=== PATIENT | male | born 1955 | race Caucasian/White ===

== ENCOUNTER 2017-09-09 20:56 | Emergency (ER) | payer OTHER ==
[2017-09-09] MEDS: LOPERAMIDE 2 MG CAP PO (23:03)
[2017-09-10 01:45] LABS: ETHANOL < 10.0 mg/dl
== END 2017-09-10 02:54 | disposition home or self-care (01) ==
LOC: E/R 09-10 02:54
DX: F10.920 Alcohol use, unspecified with intoxication, uncomplicated (principal); E11.9 Type 2 diabetes mellitus without complications; I10 Essential (primary) hypertension; E03.9 Hypothyroidism, unspecified; Z79.4 Long term (current) use of insulin
CPT/HCPCS: 80307; 82962; 99283

== ENCOUNTER 2017-09-17 11:38 | Emergency (ER) | payer OTHER ==
[2017-09-17 12:40] LABS: ADD MAN DIFF? NO
[2017-09-17 12:43] LABS: BASOPHIL # 0.1 10^3/ul (0.0-0.1); BASOPHILS % 0.4 % (0.0-2.0); EOSINOPHILS % 0.2 % (0.0-7.0); HEMATOCRIT 47.8 % (42.0-52.0); HEMOGLOBIN 15.5 g/dl (14.0-18.0); LYMPHOCYTES # 1.4 10^3/ul (0.8-2.9); LYMPHOCYTES % 8.3 % (15.0-51.0); MEAN CORPUSCULAR HEMOGLOBIN 33.6 pg (29.0-33.0); MEAN CORPUSCULAR HGB CONC 32.4 g/dl (32.0-37.0); MEAN CORPUSCULAR VOLUME 103.7 fl (82.0-101.0); MEAN PLATELET VOLUME 11.6 fl (7.4-10.4); MONOCYTE # 1.5 10^3/ul (0.3-0.9); MONOCYTES % 9.2 % (0.0-11.0); PLATELET COUNT 253 10^3/UL (140-415); RED BLOOD COUNT 4.61 10^6/ul (4.70-6.10); RED CELL DISTRIBUTION WIDTH 13.2 % (11.5-14.5)
[2017-09-17 12:43] LABS: WHITE BLOOD COUNT 16.2 10^3/ul (4.8-10.8)
[2017-09-17] MEDS: ONDANSETRON 4 MG INJ IV (12:43)
[2017-09-17 13:04] LABS: ALANINE AMINOTRANSFERASE 38 IU/L (13-69); ALBUMIN/GLOBULIN RATIO 1.72; ALKALINE PHOSPHATASE 131 IU/L (42-121); ANION GAP 38 (8-16); ASPARTATE AMINO TRANSFERASE 67 IU/L (15-46); BILIRUBIN,INDIRECT 0.7 mg/dl (0-1.1); BILIRUBIN,TOTAL 0.7 mg/dl (0.2-1.3); BLOOD UREA NITROGEN 20 mg/dl (7-20); CALCIUM 9.7 mg/dl (8.4-10.2); CHLORIDE 99 mmol/L (97-110); CREATININE 0.85 mg/dl (0.61-1.24); LIPASE 39 U/L (23-300); POTASSIUM 5.3 mmol/L (3.5-5.1); SODIUM 142 mmol/L (135-144); TOTAL PROTEIN 7.9 g/dl (6.1-8.1)
[2017-09-17 13:06] LABS: CARBON DIOXIDE 10 mmol/L (21-31)
[2017-09-17 13:07] LABS: ETHANOL < 10.0 mg/dl; GLUCOSE 618 mg/dl (70-220)
[2017-09-17 13:20] LABS: AMPHETAMINE/METHAMPHETAMINE Negative (NEGATIVE); BARBITURATES Negative (NEGATIVE); BENZODIAZEPINES Negative (NEGATIVE); CANNABINOIDS Positive (NEGATIVE); COCAINE Negative (NEGATIVE); OPIATES Negative (NEGATIVE)
[2017-09-17 13:26] LABS: MAGNESIUM 2.2 mg/dl (1.7-2.5)
[2017-09-17 13:27] LABS: URINE BLOOD (Dip) POC Negative (NEGATIVE); URINE KETONES (Dip) POC 4+ (NEGATIVE); URINE LEUKOCYTE EST (Dip) POC Negative (NEGATIVE); URINE NITRITE (Dip) POC Negative (NEGATIVE); URINE TOTAL PROTEIN POC Negative (NEGATIVE)
[2017-09-17] MEDS: ACCU-CHEK XX ×4 (13:30→15:00)
[2017-09-17] MEDS: SOD CHLORIDE 0.9% 1,860 ML IV (13:48)
[2017-09-17] MEDS: SOD CHLORIDE 0.9% 1,000 ML IV (13:53)
[2017-09-17] MEDS ORDERED: NITROGLYCERIN (SL) 0.4 MG TAB SL (14:00)
[2017-09-17] MEDS ORDERED: hydrALAzine 20 MG INJ IV (14:00)
[2017-09-17] MEDS ORDERED: DEXTROSE 50% 50 ML SYRINGE IV ×2 (14:00)
[2017-09-17] MEDS ORDERED: MAGNESIUM HYDROXIDE 30ML CUP PO (14:00)
[2017-09-17] MEDS ORDERED: morphine 2 MG INJ IV (14:00)
[2017-09-17] MEDS ORDERED: LORAZEPAM 2 MG INJ IV (14:00)
[2017-09-17] MEDS ORDERED: INSULIN HUMAN REGULAR 100 UNIT in SOD CHLORIDE 0.9% 99 ML IV (14:00)
[2017-09-17] MEDS ORDERED: ALBUTEROL/IPRATROPIUM (NEB) 3 ML AMP HHN (14:00)
[2017-09-17] MEDS ORDERED: HYDROCODONE/APAP (5/325) TAB PO (14:00)
[2017-09-17] MEDS ORDERED: NA PHOSPHATE/BIPHOS 133 ML ENEMA PR (14:00)
[2017-09-17] MEDS ORDERED: DOCUSATE SODIUM 100 MG CAP PO (14:00)
[2017-09-17] MEDS ORDERED: ACETAMINOPHEN 325 MG TAB PO (14:00)
[2017-09-17] MEDS ORDERED: NACL 0.9% 3 ML SYG IV (14:00)
[2017-09-17] MEDS ORDERED: ONDANSETRON 4 MG INJ IV (14:00)
[2017-09-17] MEDS: INSULIN HUMAN REGULAR 100 UNIT in SOD CHLORIDE 0.9% 99 ML IV (14:42)
[2017-09-17] MEDS: LACTATED RINGER'S 1,000 ML IV (15:01)
[2017-09-17 15:02] LABS: LACTIC ACID 3.1 mmol/L (0.5-2.0)
[2017-09-17] MEDS: PIPER-TAZO 3.375 GM IV (PMX) 100 ML IVPB (15:15)
[2017-09-17 15:19] LABS: FREE T4 (FREE THYROXINE) 1.28 ng/dl (0.78-2.44)
[2017-09-17 15:20] LABS: GLUCOSE, FASTING 605 mg/dl (70-110)
[2017-09-17 15:36] LABS: ANION GAP 39 (8-16); BLOOD UREA NITROGEN 21 mg/dl (7-20); CALCIUM 9.5 mg/dl (8.4-10.2); CHLORIDE 100 mmol/L (97-110); CREATININE 0.87 mg/dl (0.61-1.24); SODIUM 142 mmol/L (135-144)
[2017-09-17 15:46] LABS: CARBON DIOXIDE 9 mmol/L (21-31)
[2017-09-17 15:47] LABS: GLUCOSE 613 mg/dl (70-220)
[2017-09-17 15:48] LABS: POTASSIUM 6.3 mmol/L (3.5-5.1)
[2017-09-17 15:50] LABS: HEMOGLOBIN A1C 6.8 % (0-5.9)
[2017-09-17] MEDS ORDERED: POTASSIUM CHLORIDE 10 MEQ in SOD CHLORIDE 0.9% 1,000 ML IV (15:53)
[2017-09-17] MEDS ORDERED: SOD CHLORIDE 0.9% 1,000 ML IV (16:00)
[2017-09-17] MEDS ORDERED: HEPARIN 5,000 UNIT/0.5 ML VIAL SC (21:00)
[2017-09-18] MEDS ORDERED: PANTOPRAZOLE 40 MG INJ IV (06:00)
[2017-09-18] MEDS ORDERED: LEVOTHYROXINE 75 MCG TAB PO (07:00)
[2017-09-18 07:41] LABS: AADO2 Arterial 21.1 mmHg (7.0-24.0); Allen Test ACCEPTAB; Arterial Base Excess -18.3 mmol/L (-3.0-3); Arterial Blood Gas Oxygen Sat 96.4 mmHG (95.0-98.0); Arterial COHb 0.5 % (0.0-3.0); Arterial Fraction of Oxyhgb 95.5 % (93.0-99.0); Arterial MetHb 0.4 % (0.0-1.5); Arterial Total Hemglobin 15.9 g/dl (12.0-18.0); MODE ROOM AIR; Site Right Brachial
[2017-09-18] MEDS ORDERED: AMLODIPINE 10 MG TAB PO (09:00)
[2017-09-18 13:41] LABS: CREATININE, RANDOM URINE 19 mg/dL (20-370); MICROALBUMIN 0.5 mg/dL; MICROALBUMIN/CREATININE RATIO 26 (<30)
== END 2017-09-17 16:59 | disposition left against medical advice (07) ==
LOC: E/R 11:38
DX: E11.11 Type 2 diabetes mellitus with ketoacidosis with coma (principal); E87.5 Hyperkalemia; D72.829 Elevated white blood cell count, unspecified; F12.10 Cannabis abuse, uncomplicated; R94.5 Abnormal results of liver function studies; I10 Essential (primary) hypertension; E03.9 Hypothyroidism, unspecified; Z79.4 Long term (current) use of insulin
CPT/HCPCS: 36415; 36600; 71045; 80048; 80053; 80307; 81003; 82043; 82803; 82947; 82962; 83036; 83605; 83690; 83735; 84100; 84439; 85025; 87040; 96374; 96375; 99291-25

== ENCOUNTER 2017-09-18 23:31 | Inpatient (IN) | payer OTHER ==
[2017-09-19] MEDS: SOD CHLORIDE 0.9% 500 ML IV (02:39)
[2017-09-19 02:46] LABS: ADD MAN DIFF? NO
[2017-09-19 02:49] LABS: BASOPHILS % 0.2 % (0.0-2.0); EOSINOPHILS % 0.1 % (0.0-7.0); HEMATOCRIT 44.2 % (42.0-52.0); HEMOGLOBIN 14.8 g/dl (14.0-18.0); LYMPHOCYTES # 1.8 10^3/ul (0.8-2.9); LYMPHOCYTES % 18.6 % (15.0-51.0); MEAN CORPUSCULAR HEMOGLOBIN 33.5 pg (29.0-33.0); MEAN CORPUSCULAR HGB CONC 33.5 g/dl (32.0-37.0); MONOCYTE # 0.7 10^3/ul (0.3-0.9); MONOCYTES % 6.6 % (0.0-11.0); NEUTROPHIL # 7.3 10^3/ul (1.6-7.5); PLATELET COUNT 242 10^3/UL (140-415); RED BLOOD COUNT 4.42 10^6/ul (4.70-6.10); RED CELL DISTRIBUTION WIDTH 13.2 % (11.5-14.5)
[2017-09-19 02:49] LABS: WHITE BLOOD COUNT 9.9 10^3/ul (4.8-10.8)
[2017-09-19 02:54] LABS: ADD UMIC NO; UR ASCORBIC ACID NEGATIVE (NEGATIVE); UR BILIRUBIN (Dip) NEGATIVE (NEGATIVE); UR BLOOD (Dip) NEGATIVE (NEGATIVE); UR CLARITY CLEAR (CLEAR); UR COLOR STRAW (YELLOW); UR GLUCOSE (Dip) 3+ mg/dL (NEGATIVE); UR KETONES (Dip) 2+ mg/dL (NEGATIVE); UR LEUKOCYTE ESTERASE (Dip) NEGATIVE Leu/ul (NEGATIVE); UR NITRITE (Dip) NEGATIVE (NEGATIVE); UR SPECIFIC GRAVITY (Dip) 1.028 (1.003-1.030); UR TOTAL PROTEIN (Dip) NEGATIVE (NEGATIVE); UR UROBILINOGEN (Dip) NEGATIVE (NEGATIVE)
[2017-09-19 03:09] LABS: LACTIC ACID 1.4 mmol/L (0.5-2.0)
[2017-09-19 03:12] LABS: ALANINE AMINOTRANSFERASE 32 IU/L (13-69); ALBUMIN 4.3 g/dl (3.3-4.9); ALBUMIN/GLOBULIN RATIO 1.43; ALKALINE PHOSPHATASE 97 IU/L (42-121); ANION GAP 25 (8-16); ASPARTATE AMINO TRANSFERASE 38 IU/L (15-46); BILIRUBIN,INDIRECT 0.9 mg/dl (0-1.1); BILIRUBIN,TOTAL 0.9 mg/dl (0.2-1.3); BLOOD UREA NITROGEN 23 mg/dl (7-20); CALCIUM 9.5 mg/dl (8.4-10.2); CARBON DIOXIDE 19 mmol/L (21-31); CHLORIDE 97 mmol/L (97-110); CREATININE 0.87 mg/dl (0.61-1.24); POTASSIUM 4.3 mmol/L (3.5-5.1); SODIUM 137 mmol/L (135-144); TOTAL PROTEIN 7.3 g/dl (6.1-8.1)
[2017-09-19 03:23] LABS: GLUCOSE 572 mg/dl (70-220)
[2017-09-19] MEDS: INSULIN HUMAN REGULAR 100 UNIT in SOD CHLORIDE 0.9% 99 ML IV (03:51)
[2017-09-19] MEDS: SOD CHLORIDE 0.9% 1,000 ML IV ×4 (05:34→18:54)
[2017-09-19] MEDS ORDERED: ALBUTEROL/IPRATROPIUM (NEB) 3 ML AMP NEB (06:00)
[2017-09-19] MEDS ORDERED: ACETAMINOPHEN 650MG/20.3ML CUP PO (06:00)
[2017-09-19] MEDS: ACCU-CHEK XX ×8 (06:00→20:39)
[2017-09-19] MEDS ORDERED: ONDANSETRON 4 MG INJ IV (06:00)
[2017-09-19] MEDS ORDERED: INSULIN HUMAN REGULAR 100 UNIT in SOD CHLORIDE 0.9% 99 ML IV (06:00)
[2017-09-19] MEDS ORDERED: morphine 2 MG INJ IV (06:00)
[2017-09-19] MEDS ORDERED: DEXTROSE 50% 50 ML SYRINGE IV ×4 (06:00→19:00)
[2017-09-19 06:14] LABS: AADO2 Arterial 31.4 mmHg (7.0-24.0); Allen Test ACCEPTAB; Arterial Base Excess -1.3 mmol/L (-3.0-3); Arterial Blood Gas Oxygen Sat 96.2 mmHG (95.0-98.0); Arterial COHb 0.7 % (0.0-3.0); Arterial Fraction of Oxyhgb 95.3 % (93.0-99.0); Arterial HCO3 22.1 mmol/L (22.0-26.0); Arterial MetHb 0.2 % (0.0-1.5); Arterial pCO2 33.9 mmhg (35-45); MODE ROOM AIR; Site Right Radial
[2017-09-19 06:34] LABS: LACTIC ACID 1.4 mmol/L (0.5-2.0)
[2017-09-19 07:33] LABS: PHOSPHORUS 1.7 mg/dl (2.5-4.9)
[2017-09-19] MEDS: DEXTROSE 5%-0.9% NACL 1,000 ML IV (08:04)
[2017-09-19 08:13] LABS: LACTIC ACID 1.7 mmol/L (0.5-2.0)
[2017-09-19 08:17] LABS: ANION GAP 13 (8-16); BLOOD UREA NITROGEN 19 mg/dl (7-20); CALCIUM 9.4 mg/dl (8.4-10.2); CARBON DIOXIDE 25 mmol/L (21-31); CHLORIDE 105 mmol/L (97-110); CREATININE 0.63 mg/dl (0.61-1.24); GLUCOSE 216 mg/dl (70-220); MAGNESIUM 2.2 mg/dl (1.7-2.5); SODIUM 140 mmol/L (135-144)
[2017-09-19] MEDS: LACTATED RINGER'S 1,000 ML IV (08:38)
[2017-09-19] MEDS: POTASSIUM CHLORIDE 20 MEQ in SOD CHLORIDE 0.9% 1,000 ML IV (08:45)
[2017-09-19] MEDS: PROVENTIL HFA 6.7GM INHALER INH ×2 (10:00→13:21)
[2017-09-19] MEDS: INSULIN GLARGINE [LANtus] 3 ML PEN SC (10:07)
[2017-09-19] MEDS: INSULIN ASPART [NOVOLOG] 3 ML PEN SC ×7 (12:15→20:48)
[2017-09-19] MEDS: BENAZEPRIL 40 MG TAB PO (12:58)
[2017-09-19] MEDS: AMLODIPINE 10 MG TAB PO (12:58)
[2017-09-19] MEDS: ASPIRIN (EC) 81 MG TAB PO (13:02)
[2017-09-19] MEDS ORDERED: GLUCOSE GEL 15 GRAM TUBE BUCCAL (19:00)
[2017-09-19] MEDS ORDERED: GLUCAGON 1 MG INJ IM (19:00)
[2017-09-19] MEDS ORDERED: GLUCOSE GEL 15 GRAM TUBE PO ×2 (19:00)
[2017-09-19 20:06] LABS: HEPATITIS B SURFACE ANTIGEN NEGATIVE (NEGATIVE)
[2017-09-19 20:23] LABS: HEPATITIS C VIRAL ANTIBODY NEGATIVE (NEGATIVE)
[2017-09-19 20:23] LABS: HEPATITIS B SURFACE ANTIBODY NEGATIVE (NEGATIVE)
[2017-09-19] MEDS: LOPERAMIDE 2 MG CAP PO (20:38)
[2017-09-19] MEDS: POTASSIUM CHLORIDE (SR) 20 MEQ TAB PO (20:38)
[2017-09-19] MEDS: POTASSIUM CHLORIDE 100 ML IVPB ×2 (20:39→22:51)
[2017-09-19] MEDS: ALBUTEROL HFA 8 GM INHALER INH (20:41)
[2017-09-19] MEDS ORDERED: BENAZEPRIL 40 MG TAB PO (21:00)
[2017-09-20] MEDS: ALBUTEROL HFA 8 GM INHALER INH ×4 (00:51→13:00)
[2017-09-20] MEDS: ACCU-CHEK XX ×2 (02:01→10:05)
[2017-09-20] MEDS: SOD CHLORIDE 0.9% 1,000 ML IV ×2 (02:01→09:18)
[2017-09-20 05:46] LABS: ADD MAN DIFF? NO
[2017-09-20 05:52] LABS: BASOPHILS % 0.6 % (0.0-2.0); EOSINOPHILS # 0.1 10^3/ul (0.0-0.5); EOSINOPHILS % 0.8 % (0.0-7.0); HEMATOCRIT 40.2 % (42.0-52.0); HEMOGLOBIN 13.8 g/dl (14.0-18.0); LYMPHOCYTES # 2.9 10^3/ul (0.8-2.9); LYMPHOCYTES % 40.3 % (15.0-51.0); MEAN CORPUSCULAR HGB CONC 34.3 g/dl (32.0-37.0); MEAN PLATELET VOLUME 10.5 fl (7.4-10.4); MONOCYTE # 0.7 10^3/ul (0.3-0.9); MONOCYTES % 9.4 % (0.0-11.0); NEUTROPHIL # 3.5 10^3/ul (1.6-7.5); NEUTROPHILS % 48.6 % (39.0-77.0); PLATELET COUNT 197 10^3/UL (140-415); RED BLOOD COUNT 4.06 10^6/ul (4.70-6.10); RED CELL DISTRIBUTION WIDTH 12.7 % (11.5-14.5)
[2017-09-20 05:52] LABS: WHITE BLOOD COUNT 7.1 10^3/ul (4.8-10.8)
[2017-09-20 05:58] LABS: CHOL/HDL RATIO 1.9 RATIO; HDL CHOLESTEROL 67 mg/dl (30-78); LDL CHOLESTEROL,CALCULATED 48 mg/dl; TRIGLYCERIDES 69 mg/dl (0-149)
[2017-09-20 05:58] LABS: CHOLESTEROL 129 mg/dl (100-200)
[2017-09-20 06:01] LABS: ANION GAP 11 (8-16); BLOOD UREA NITROGEN 9 mg/dl (7-20); CALCIUM 8.6 mg/dl (8.4-10.2); CARBON DIOXIDE 25 mmol/L (21-31); CHLORIDE 107 mmol/L (97-110); CREATININE 0.56 mg/dl (0.61-1.24); GLUCOSE 214 mg/dl (70-220); MAGNESIUM 1.9 mg/dl (1.7-2.5); SODIUM 139 mmol/L (135-144)
[2017-09-20 06:04] LABS: PHOSPHORUS 2.4 mg/dl (2.5-4.9)
[2017-09-20] MEDS: LEVOTHYROXINE 75 MCG TAB PO (08:14)
[2017-09-20] MEDS: AMLODIPINE 5 MG TAB PO (08:15)
[2017-09-20] MEDS: BENAZEPRIL 40 MG TAB PO (08:15)
[2017-09-20] MEDS: ASPIRIN (EC) 81 MG TAB PO (08:15)
[2017-09-20] MEDS: INSULIN GLARGINE [LANtus] 3 ML PEN SC (08:20)
[2017-09-20] MEDS: INSULIN ASPART [NOVOLOG] 3 ML PEN SC ×4 (08:21→12:04)
[2017-09-20] MEDS: LOPERAMIDE 2 MG CAP PO (09:21)
[2017-09-20] MEDS: POTASSIUM CHLORIDE (SR) 20 MEQ TAB PO (13:56)
== END 2017-09-20 14:05 | disposition home or self-care (01) | DRG 638 ==
LOC: E/R 23:31 → MS2 09-19 09:48
PROVIDERS: Internal Medicine
DX: E10.10 Type 1 diabetes mellitus with ketoacidosis without coma (principal); T85.694A Other mechanical complication of insulin pump, initial encounter; I10 Essential (primary) hypertension; E03.9 Hypothyroidism, unspecified; Z96.41 Presence of insulin pump (external) (internal); Z79.4 Long term (current) use of insulin
CPT/HCPCS: 36415; 36600; 71045; 80048; 80053; 80061; 81003; 82803; 82962; 83605; 83735; 84100; 84443; 85025; 86706; 86803; 87086; 87340; 96372; 96374; 96375; 99291-25

== ENCOUNTER 2017-11-11 09:20 | Inpatient (IN) | payer OTHER ==
[2017-11-11] MEDS ORDERED: INSULIN REGULAR 10 ML INJ IV (09:32)
[2017-11-11] MEDS: SOD CHLORIDE 0.9% 1,000 ML IV (09:39)
[2017-11-11 09:48] LABS: ADD MAN DIFF? NO
[2017-11-11] MEDS: INSULIN REGULAR, HUMAN 100 UNIT/1 ML 3ML VIAL IV (09:49)
[2017-11-11 09:51] LABS: ABNORMAL IP MESSAGE 1; BASOPHILS % 0.2 % (0.0-2.0); EOSINOPHILS % 0.1 % (0.0-7.0); HEMATOCRIT 43.2 % (42.0-52.0); HEMOGLOBIN 14.5 g/dl (14.0-18.0); LYMPHOCYTES # 0.8 10^3/ul (0.8-2.9); LYMPHOCYTES % 4.8 % (15.0-51.0); MEAN CORPUSCULAR HEMOGLOBIN 34.3 pg (29.0-33.0); MEAN CORPUSCULAR HGB CONC 33.6 g/dl (32.0-37.0); MEAN CORPUSCULAR VOLUME 102.1 fl (82.0-101.0); MEAN PLATELET VOLUME 11.3 fl (7.4-10.4); MONOCYTE # 1.6 10^3/ul (0.3-0.9); MONOCYTES % 9.2 % (0.0-11.0); NEUTROPHIL # 14.9 10^3/ul (1.6-7.5); NEUTROPHILS % 84.7 % (39.0-77.0); PLATELET COUNT 271 10^3/UL (140-415); POSITIVE DIFF @See below; RED BLOOD COUNT 4.23 10^6/ul (4.70-6.10); RED CELL DISTRIBUTION WIDTH 12.5 % (11.5-14.5)
[2017-11-11 09:51] LABS: WHITE BLOOD COUNT 17.5 10^3/ul (4.8-10.8)
[2017-11-11 09:52] LABS: ADD UMIC NO; UR ASCORBIC ACID NEGATIVE (NEGATIVE); UR BILIRUBIN (Dip) NEGATIVE (NEGATIVE); UR BLOOD (Dip) NEGATIVE (NEGATIVE); UR CLARITY CLEAR (CLEAR); UR COLOR STRAW (YELLOW); UR GLUCOSE (Dip) 3+ mg/dL (NEGATIVE); UR KETONES (Dip) 2+ mg/dL (NEGATIVE); UR LEUKOCYTE ESTERASE (Dip) NEGATIVE Leu/ul (NEGATIVE); UR NITRITE (Dip) NEGATIVE (NEGATIVE); UR SPECIFIC GRAVITY (Dip) 1.017 (1.003-1.030); UR TOTAL PROTEIN (Dip) NEGATIVE (NEGATIVE); UR UROBILINOGEN (Dip) NEGATIVE (NEGATIVE)
[2017-11-11 10:11] LABS: ALANINE AMINOTRANSFERASE 34 IU/L (13-69); ALBUMIN 4.1 g/dl (3.3-4.9); ALBUMIN/GLOBULIN RATIO 1.57; ALKALINE PHOSPHATASE 122 IU/L (42-121); AMYLASE 46 U/L (11-123); ANION GAP 31 (8-16); ASPARTATE AMINO TRANSFERASE 55 IU/L (15-46); BLOOD UREA NITROGEN 16 mg/dl (7-20); CALCIUM 9.7 mg/dl (8.4-10.2); CARBON DIOXIDE 13 mmol/L (21-31); CHLORIDE 99 mmol/L (97-110); CREATININE 0.74 mg/dl (0.61-1.24); LIPASE 33 U/L (23-300); MAGNESIUM 1.7 mg/dl (1.7-2.5); PHOSPHORUS 5.3 mg/dl (2.5-4.9); POTASSIUM 4.8 mmol/L (3.5-5.1); SODIUM 138 mmol/L (135-144); TOTAL PROTEIN 6.7 g/dl (6.1-8.1)
[2017-11-11 10:14] LABS: ETHANOL < 10.0 mg/dl; GLUCOSE 450 mg/dl (70-220)
[2017-11-11 10:15] LABS: LACTIC ACID 4.5 mmol/L (0.5-2.0)
[2017-11-11 10:16] LABS: AMPHETAMINE/METHAMPHETAMINE Negative (NEGATIVE); BARBITURATES Negative (NEGATIVE); BENZODIAZEPINES Negative (NEGATIVE); CANNABINOIDS Positive (NEGATIVE); COCAINE Negative (NEGATIVE); OPIATES Negative (NEGATIVE)
[2017-11-11 10:18] LABS: INR 0.94; PROTIME 12.7 Sec (11.9-14.9)
[2017-11-11 10:26] LABS: AADO2 Arterial 32.8 mmHg (7.0-24.0); Allen Test ACCEPTAB; Arterial Base Excess -12.3 mmol/L (-3.0-3); Arterial Blood Gas Oxygen Sat 95.6 mmHG (95.0-98.0); Arterial Fraction of Oxyhgb 94.4 % (93.0-99.0); Arterial HCO3 12.2 mmol/L (22.0-26.0); Arterial MetHb 0.3 % (0.0-1.5); Arterial Total Hemglobin 14.7 g/dl (12.0-18.0); Arterial pCO2 25.3 mmhg (35-45); MODE ROOM AIR; Site Right Radial
[2017-11-11] MEDS ORDERED: SODIUM CHLORIDE 23.4% 77 MEQ, POTASSIUM CHLORIDE 40 MEQ in DEXTROSE 10% 1,000 ML IV (10:38)
[2017-11-11] MEDS ORDERED: SODIUM CHLORIDE 23.4% 77 MEQ in DEXTROSE 10% 1,000 ML IV (10:38)
[2017-11-11] MEDS ORDERED: POTASSIUM CHLORIDE 40 MEQ in SOD CHLORIDE 0.9% 1,000 ML IV (10:38)
[2017-11-11] MEDS ORDERED: SOD CHLORIDE 0.9% 1,000 ML IV (10:38)
[2017-11-11] MEDS: LACTATED RINGER S IV (10:45)
[2017-11-11] MEDS ORDERED: DEXTROSE 50% 50 ML SYRINGE IV ×4 (11:00→21:00)
[2017-11-11] MEDS ORDERED: SODIUM CHLORIDE 0.9% 1L BAG IV* (11:46)
[2017-11-11] MEDS: INSULIN REGULAR, HUMAN 100 UNIT in SOD CHLORIDE 0.9% 100 ML IV (12:02)
[2017-11-11] MEDS: SODIUM CHLORIDE 23.4% 77 MEQ, POTASSIUM CHLORIDE 30 MEQ in DEXTROSE 10% 1,000 ML IV ×2 (12:02→19:40)
[2017-11-11] MEDS: POTASSIUM CHLORIDE 30 MEQ in SOD CHLORIDE 0.9% 1,000 ML IV (12:03)
[2017-11-11] MEDS: CEFEPIME 2GM/50 ML (PMX) 50 ML IVPB (12:17)
[2017-11-11 12:23] LABS: LACTIC ACID 3.4 mmol/L (0.5-2.0)
[2017-11-11 12:24] LABS: ANION GAP 21 (8-16); BLOOD UREA NITROGEN 16 mg/dl (7-20); CALCIUM 8.5 mg/dl (8.4-10.2); CARBON DIOXIDE 18 mmol/L (21-31); CHLORIDE 101 mmol/L (97-110); CREATININE 0.69 mg/dl (0.61-1.24); GLUCOSE 244 mg/dl (70-220); MAGNESIUM 1.6 mg/dl (1.7-2.5); POTASSIUM 4.9 mmol/L (3.5-5.1); SODIUM 135 mmol/L (135-144)
[2017-11-11] MEDS: SOD CHLORIDE 0.9% 500 ML IV (12:28)
[2017-11-11] MEDS: VANCOMYCIN 1 GM (PMX) 250 ML IVPB (12:56)
[2017-11-11 14:13] LABS: MODE ROOM AIR; MetHgb Venous 0.3 %; Sample Type Blood venous; Site VENOUS LINE; Venous Fraction OxyHgb 42.5 %; Venous Oxygen Sat 43.1 mmHG (55.0-75.0); Venous Total Hemglobin 14.2 g/dl
[2017-11-11 14:53] LABS: ANION GAP 19 (8-16); BLOOD UREA NITROGEN 15 mg/dl (7-20); CALCIUM 8.4 mg/dl (8.4-10.2); CARBON DIOXIDE 17 mmol/L (21-31); CHLORIDE 103 mmol/L (97-110); CREATININE 0.65 mg/dl (0.61-1.24); GLUCOSE 248 mg/dl (70-220); MAGNESIUM 1.7 mg/dl (1.7-2.5); PHOSPHORUS 2.5 mg/dl (2.5-4.9); POTASSIUM 4.3 mmol/L (3.5-5.1); SODIUM 135 mmol/L (135-144)
[2017-11-11 15:28] LABS: LACTIC ACID 2.5 mmol/L (0.5-2.0)
[2017-11-11] MEDS ORDERED: ACETAMINOPHEN 325 MG TAB PO (16:30)
[2017-11-11] MEDS ORDERED: NACL 0.9% 3 ML SYG IV (16:30)
[2017-11-11 18:33] LABS: MODE ROOM AIR; MetHgb Venous 0.4 %; Sample Type Blood venous; Site VENOUS LINE; Venous COHb 0.8 %; Venous Fraction OxyHgb 48.1 %; Venous Oxygen Sat 48.7 mmHG (55.0-75.0)
[2017-11-11 18:43] LABS: AMPHETAMINE/METHAMPHETAMINE Negative (NEGATIVE); BARBITURATES Negative (NEGATIVE); BENZODIAZEPINES Negative (NEGATIVE); CANNABINOIDS Positive (NEGATIVE); COCAINE Negative (NEGATIVE); OPIATES Negative (NEGATIVE)
[2017-11-11 18:48] LABS: ANION GAP 11 (8-16); BLOOD UREA NITROGEN 13 mg/dl (7-20); CALCIUM 8.5 mg/dl (8.4-10.2); CARBON DIOXIDE 24 mmol/L (21-31); CHLORIDE 104 mmol/L (97-110); CREATININE 0.56 mg/dl (0.61-1.24); GLUCOSE 194 mg/dl (70-220); MAGNESIUM 1.7 mg/dl (1.7-2.5); PHOSPHORUS 1.5 mg/dl (2.5-4.9); POTASSIUM 4.2 mmol/L (3.5-5.1); SODIUM 135 mmol/L (135-144)
[2017-11-11 19:01] LABS: B-TYPE NATRIURETIC PEPTIDE 1450 PG/ML (0-125)
[2017-11-11] MEDS: LOPERAMIDE 2 MG CAP PO (19:36)
[2017-11-11] MEDS: INSULIN GLARGINE [LANTus] (100 UNITS/ML) SYG SC (20:10)
[2017-11-11] MEDS: LACTOBACILLUS RHAMNOSUS CAP PO (20:10)
[2017-11-11] MEDS: HYDROCODONE/APAP (5/325) TAB PO (20:16)
[2017-11-11] MEDS: ONDANSETRON 4 MG INJ IV (20:16)
[2017-11-11] MEDS: INSULIN ASPART [NOVOLOG] 3 ML PEN SC ×3 (21:00→21:39)
[2017-11-11] MEDS ORDERED: GLUCAGON 1 MG INJ IM (21:00)
[2017-11-11] MEDS ORDERED: GLUCOSE GEL 15 GRAM TUBE PO ×2 (21:00)
[2017-11-11] MEDS ORDERED: GLUCOSE GEL 15 GRAM TUBE BUCCAL (21:00)
[2017-11-11] MEDS: CEPASTAT LOZENGE MT (21:02)
[2017-11-12] MEDS ORDERED: ACCU-CHEK XX (02:00)
[2017-11-12] MEDS: ACCU-CHEK XX ×2 (02:13→23:09)
[2017-11-12] MEDS: SOD CHLORIDE 0.9% 1,000 ML IV (03:00)
[2017-11-12] MEDS: INSULIN ASPART [NOVOLOG] 3 ML PEN SC ×12 (03:11→20:59)
[2017-11-12] MEDS: HYDROCODONE/APAP (5/325) TAB PO ×2 (04:02→20:56)
[2017-11-12 06:51] LABS: HEMOGLOBIN A1C 5.8 % (0-5.9)
[2017-11-12] MEDS: LEVOTHYROXINE 75 MCG TAB PO (06:53)
[2017-11-12] MEDS ORDERED: LEVOTHYROXINE 75 MCG TAB PO (07:00)
[2017-11-12] MEDS ORDERED: INSULIN GLARGINE [LANTus] (100 UNITS/ML) SYG SC (08:00)
[2017-11-12] MEDS ORDERED: INSULIN ASPART [NOVOLOG] 3 ML PEN SC ×3 (08:00)
[2017-11-12] MEDS: ASPIRIN (EC) 81 MG TAB PO (09:14)
[2017-11-12] MEDS: BENAZEPRIL 40 MG TAB PO (09:14)
[2017-11-12] MEDS: FUROSEMIDE 20 MG TAB PO (09:14)
[2017-11-12] MEDS: AMLODIPINE 10 MG TAB PO (09:14)
[2017-11-12] MEDS: ENOXAPARIN 40 MG/0.4 ML SYG SC (09:23)
[2017-11-12] MEDS: LACTOBACILLUS RHAMNOSUS CAP PO ×3 (10:55→18:17)
[2017-11-12] MEDS ORDERED: VANCOMYCIN IV PER PHARMACY XX (16:00)
[2017-11-12] MEDS: LOPERAMIDE 2 MG CAP PO (18:17)
[2017-11-12] MEDS: VANCOMYCIN 1.75 GM in SOD CHLORIDE 0.9% 500 ML IVPB (18:40)
[2017-11-12] MEDS: CEFEPIME 1GM/50 ML (PMX) 50 ML IVPB (20:55)
[2017-11-12] MEDS: INSULIN GLARGINE [LANTus] (100 UNITS/ML) SYG SC (21:03)
[2017-11-13] MEDS: VANCOMYCIN 1.5 GM in SOD CHLORIDE 0.9% 250 ML IVPB (06:11)
[2017-11-13] MEDS: LEVOTHYROXINE 75 MCG TAB PO (06:11)
[2017-11-13 06:33] LABS: ADD MAN DIFF? NO
[2017-11-13 06:35] LABS: WHITE BLOOD COUNT 8.7 10^3/ul (4.8-10.8)
[2017-11-13 06:35] LABS: BASOPHILS % 0.2 % (0.0-2.0); EOSINOPHILS # 0.1 10^3/ul (0.0-0.5); EOSINOPHILS % 1.4 % (0.0-7.0); HEMATOCRIT 41.5 % (42.0-52.0); HEMOGLOBIN 14.2 g/dl (14.0-18.0); LYMPHOCYTES # 2.7 10^3/ul (0.8-2.9); MEAN CORPUSCULAR HGB CONC 34.2 g/dl (32.0-37.0); MEAN CORPUSCULAR VOLUME 99.3 fl (82.0-101.0); MEAN PLATELET VOLUME 10.9 fl (7.4-10.4); MONOCYTE # 0.6 10^3/ul (0.3-0.9); MONOCYTES % 7.4 % (0.0-11.0); NEUTROPHIL # 5.2 10^3/ul (1.6-7.5); NEUTROPHILS % 59.7 % (39.0-77.0); PLATELET COUNT 218 10^3/UL (140-415); RED BLOOD COUNT 4.18 10^6/ul (4.70-6.10)
[2017-11-13 07:00] LABS: ANION GAP 10 (8-16); BLOOD UREA NITROGEN 8 mg/dl (7-20); CALCIUM 8.5 mg/dl (8.4-10.2); CARBON DIOXIDE 25 mmol/L (21-31); CHLORIDE 103 mmol/L (97-110); CREATININE 0.52 mg/dl (0.61-1.24); GLUCOSE 149 mg/dl (70-220); POTASSIUM 3.6 mmol/L (3.5-5.1); SODIUM 134 mmol/L (135-144)
[2017-11-13] MEDS: BENAZEPRIL 40 MG TAB PO (08:30)
[2017-11-13] MEDS: ASPIRIN (EC) 81 MG TAB PO (08:30)
[2017-11-13] MEDS: FUROSEMIDE 20 MG TAB PO (08:31)
[2017-11-13] MEDS: CEFEPIME 1GM/50 ML (PMX) 50 ML IVPB (08:31)
[2017-11-13] MEDS: AMLODIPINE 10 MG TAB PO (08:31)
[2017-11-13] MEDS: LACTOBACILLUS RHAMNOSUS CAP PO ×3 (08:40→17:04)
[2017-11-13] MEDS: ENOXAPARIN 40 MG/0.4 ML SYG SC (08:47)
[2017-11-13] MEDS: INSULIN ASPART [NOVOLOG] 3 ML PEN SC ×7 (08:47→21:00)
[2017-11-13] MEDS: LOPERAMIDE 2 MG CAP PO (11:27)
[2017-11-13] MEDS: ALBUTEROL HFA 8 GM INHALER INH (12:05)
[2017-11-13] MEDS: INSULIN GLARGINE [LANTus] (100 UNITS/ML) SYG SC (20:00)
[2017-11-13] MEDS: HYDROCODONE/APAP (5/325) TAB PO (21:37)
[2017-11-14] MEDS: ACCU-CHEK XX (02:00)
[2017-11-14] MEDS: LEVOTHYROXINE 75 MCG TAB PO (06:19)
[2017-11-14] MEDS: INSULIN ASPART [NOVOLOG] 3 ML PEN SC ×7 (08:11→20:11)
[2017-11-14] MEDS: AMLODIPINE 10 MG TAB PO (08:59)
[2017-11-14] MEDS: BENAZEPRIL 40 MG TAB PO (08:59)
[2017-11-14] MEDS: ASPIRIN (EC) 81 MG TAB PO (08:59)
[2017-11-14] MEDS: FUROSEMIDE 20 MG TAB PO (08:59)
[2017-11-14] MEDS: ENOXAPARIN 40 MG/0.4 ML SYG SC (09:03)
[2017-11-14] MEDS: LACTOBACILLUS RHAMNOSUS CAP PO ×3 (10:52→17:54)
[2017-11-14] MEDS: INSULIN GLARGINE [LANTus] (100 UNITS/ML) SYG SC (20:23)
[2017-11-15] MEDS: ACCU-CHEK XX (01:49)
[2017-11-15] MEDS: LEVOTHYROXINE 75 MCG TAB PO (05:58)
[2017-11-15] MEDS: LACTOBACILLUS RHAMNOSUS CAP PO ×3 (07:30→17:09)
[2017-11-15] MEDS: INSULIN ASPART [NOVOLOG] 3 ML PEN SC ×7 (07:42→20:52)
[2017-11-15] MEDS: FUROSEMIDE 20 MG TAB PO (08:56)
[2017-11-15] MEDS: BENAZEPRIL 40 MG TAB PO (08:56)
[2017-11-15] MEDS: ASPIRIN (EC) 81 MG TAB PO (08:56)
[2017-11-15] MEDS: AMLODIPINE 10 MG TAB PO (08:57)
[2017-11-15] MEDS: ENOXAPARIN 40 MG/0.4 ML SYG SC (09:03)
[2017-11-15] MEDS: SOD CHLORIDE 0.9% 1,000 ML IV (14:19)
[2017-11-15] MEDS: INSULIN GLARGINE [LANTus] (100 UNITS/ML) SYG SC (20:51)
[2017-11-16] MEDS: ACCU-CHEK XX (02:27)
[2017-11-16] MEDS: LEVOTHYROXINE 75 MCG TAB PO (05:29)
[2017-11-16] MEDS: LACTOBACILLUS RHAMNOSUS CAP PO (07:30)
[2017-11-16] MEDS: ASPIRIN (EC) 81 MG TAB PO (08:35)
[2017-11-16] MEDS: AMLODIPINE 10 MG TAB PO (08:36)
[2017-11-16] MEDS: FUROSEMIDE 20 MG TAB PO (08:36)
[2017-11-16] MEDS: BENAZEPRIL 40 MG TAB PO (08:37)
[2017-11-16] MEDS: INSULIN ASPART [NOVOLOG] 3 ML PEN SC ×2 (08:45)
[2017-11-16] MEDS: ENOXAPARIN 40 MG/0.4 ML SYG SC (09:20)
[2017-11-16] MEDS ORDERED: INSULIN ASPART [NOVOLOG] 3 ML PEN SC (11:50)
[2017-11-16] MEDS ORDERED: INSULIN GLARGINE [LANTus] (100 UNITS/ML) SYG SC (20:00)
== END 2017-11-16 10:55 | disposition home or self-care (01) | DRG 638 ==
LOC: E/R 09:20 → TEL 11-12 01:40
PROVIDERS: Internal Medicine
DX: E10.10 Type 1 diabetes mellitus with ketoacidosis without coma (principal); R65.10 Systemic inflammatory response syndrome (SIRS) of non-infectious origin without acute organ dysfunction; I10 Essential (primary) hypertension; E03.9 Hypothyroidism, unspecified; J45.909 Unspecified asthma, uncomplicated; R60.9 Edema, unspecified; Z96.41 Presence of insulin pump (external) (internal); Z79.4 Long term (current) use of insulin; Z59.0 Homelessness; Z87.891 Personal history of nicotine dependence
CPT/HCPCS: 36415; 36600; 71045; 80048; 80053; 80307; 81003; 82150; 82803; 82962; 83036; 83605; 83690; 83735; 83880; 84100; 85025; 85610; 85730; 87040; 87086; 93005; 93306; 96361; 96374; 99291-25